=== PATIENT | female | born 1990 | race Caucasian/White ===

== ENCOUNTER 2016-11-11 15:20 | Emergency (ER) | payer MEDICAID ==
--- NOTE | 2016-11-11 15:24 | NUR ---
CALLED PT TO [facility] FROM LOBBY AND CHECKED FOR PATIENT OUTSIDE; NO ANSWER; WILL TRY AGAIN.
--- NOTE | 2016-11-11 15:43 | NUR ---
CALLED PATIENT TO BE TRAIGED FROM LOBBY. PATIENT LEFT WITHOUT BEING SEEN BY DR. GARG. NO FURTHER CARE PROVIDED FOR PATIENT.
== END 2016-11-11 15:43 | disposition left against medical advice (07) ==
LOC: MED 15:20
DX: R10.9 Unspecified abdominal pain (principal); Z53.21 Procedure and treatment not carried out due to patient leaving prior to being seen by health care provider

== ENCOUNTER 2017-02-10 17:41 | Emergency (ER) | payer MEDICAID ==
[~2017-02-10] VITALS: Ht 144.8 cm; Wt 59.9 kg
[2017-02-10 18:00] VITALS: BP 125/94
--- NOTE | 2017-02-10 18:34 | NUR ---
PATIENT LEFT WITHOUT BEING SEEN BY DR. MORROW. NO FURTHER CARE PROVIDED FOR PATIENT.
== END 2017-02-10 18:34 | disposition left against medical advice (07) ==
LOC: MED 17:41
DX: R11.10 Vomiting, unspecified (principal); Z53.21 Procedure and treatment not carried out due to patient leaving prior to being seen by health care provider

== ENCOUNTER 2023-05-24 16:13 | Emergency (ER) | payer MEDICAID ==
[~2023-05-24] VITALS: Ht 139.7 cm; Wt 58.1 kg
[2023-05-24 17:02] VITALS: BP 134/84; PULSE 69; RESP 18; TEMP 98.3; O2SAT 98
[2023-05-24] MEDS ORDERED: IBUP-2213 PO (19:45)
== END 2023-05-24 19:58 | disposition home or self-care (01) ==
LOC: MED 16:13
DX: R51.9 Headache, unspecified (principal); R11.2 Nausea with vomiting, unspecified; R42 Dizziness and giddiness; J45.909 Unspecified asthma, uncomplicated; Z82.3 Family history of stroke; Z79.899 Other long term (current) drug therapy
CPT/HCPCS: 70450; 70496; 70498; 99285; Q9967